=== PATIENT | female | born 1960 | race Caucasian/White ===

== ENCOUNTER 2016-11-05 13:31 | Inpatient (IN) ==
--- NOTE | 2016-11-05 09:53 | Discharge Summary ---
Date of Encounter: 11/08/16 Time of Encounter: 06:37 - Discharge Diagnosis (1) Arthritis of right knee Priority: Primary Status: Chronic (2) Hyperlipidemia Priority: Secondary Status: Acute Qualifiers: Hyperlipidemia type: unspecified Qualified Code(s): E78.5 - Hyperlipidemia , unspecified (3) Diabetes type 2, controlled Priority: Secondary Status: Acute Qualifiers: Diabetes mellitus complication status: without complication Diabetes mellitus termite technician insulin use: unspecified mcfp insulin use status Qualified Code(s): E11.9 - Type 2 diabetes mellitus without complications (4) Status post total right knee replacement Priority: Primary Status: Acute (5) Acute blood loss anemia Priority: Primary Status: Acute - Discharge Medications Home Medications: ALPRAZolam [Xanax 0.25 MG Tablet] 0.25 mg PO BID 11/05/16 [History] Aspirin Enteric Coated [Aspirin EC] 325 mg PO BID #20 tablet. 11/05/16 [Rx] Aspirin [Lo-Dose Aspirin EC] 81 mg PO DAILY 11/05/16 [History] Atorvastatin Calcium [Lipitor] 10 mg PO DAILY 11/05/16 [History] Calcium Carb,Cit/D3/Phytostrol [Citracal D + Heart Health Tab] 1 tab PO DAILY [History] Cholecalciferol (Vitamin D3) [Vitamin D] 1,000 unit PO DAILY 11/05/16 [History] Fluticasone Propionate Nasal [Flonase] 1 spray NS DAILY PRN 11/05/16 [History] Metformin HCl [Fortamet] 500 mg PO BID 11/05/16 [History] Multivitamin/Iron/Folic Acid [Centrum Women Tablet] 1 tab PO DAILY 11/05/16 [ History] Niacin (24 HR) [Niaspan] 500 mg PO DAILY 11/05/16 [History] OxyCODONE Immed Rel [Roxicodone 5 MG] 5 mg PO Q4HR PRN #30 tablet 11/05/16 [Rx] Paroxetine [Paxil] 30 mg PO DAILY 11/05/16 [History] Trazodone HCl 100 mg PO HS 11/05/16 [History] Valsartan/Hydrochlorothiazide [Diovan Hct 320-25 mg Tablet] 1 tab PO DAILY 11/05 [History] Allergies/Adverse Reactions: Allergies No Known Allergies Allergy (Verified 11/05/16 14:38) Primary care physician: Marilia Thao CNP - Patient Status Disposition: Home, Self-Care Condition: Good Functional capacity at discharge: uses cane/walker Overall status at discharge: patient is progressing back to baseline - Discharge Instructions Follow Up With: Marilia Thao CNP [Primary Care Provider] - - Hospital Course Hospital course: Ms. Castillo is a 55 year old female Status post right total knee replacement The patient had an uneventful postoperative course. They received antibiotics and physical therapy and were discharged in stable condition. There will follow -up in the office in 2 weeks. - Time Spent with Patient Total time spent providing and/or coordinating discharge services:
[2016-11-05] MEDS ORDERED: Scopolamine Patch 1.5 MG PATCH.TD72 TD ONE (13:59)
--- NOTE | 2016-11-05 14:03 | Anesthesia Evaluation PreOp ---
Date of Encounter: 11/05/16 Time of Encounter: 14:02 - Past History Planned Operation: Right total knee arthroscopy Cardiac History: HTN, Hyperlipidemia Pulmonary History: Denies Any Significant HX JAIL KEEPER History: Denies Any Significant HX Other Medical History: Diabetes Type II (oral medications only) Anesthesia History: Past Anesthesia, Problems (nausea) Medications and Allergies Aspirin Enteric Coated [Aspirin EC] 325 mg PO BID #20 tablet. 11/05/16 [Rx] OxyCODONE Immed Rel [Roxicodone 5 MG] 5 mg PO Q4HR PRN #30 tablet 11/05/16 [Rx] Allergies No Known Allergies Allergy (Unverified 11/02/16 09:09) - Meds/Allergy Pre-op Review Medications Reviewed: Yes Allergies Reviewed: Yes Beta Blockers on Current Med List: No Anesthesia Results - Labs Laboratory Tests 11/02/16 11/02/16 11/02/16 09:32 09:32 09:32 WBC 10.2 Hgb 14.0 Hct 40.8 Plt Count 334 PT 10.0 INR 0.9 APTT 34.2 Sodium 140 Potassium 3.6 Chloride 104 Carbon Dioxide 28 BUN 13 Creatinine 0.76 Est GFR ( Amer) > 60 Est GFR (Non-Af Amer) > 60 BUN/Creatinine Ratio 17 POC Glucose Est Mean Plasma Glucose Hemoglobin A1c 11/02/16 11/05/16 09:32 13:43 WBC Hgb Hct Plt Count PT INR APTT Sodium Potassium Chloride Carbon Dioxide BUN Creatinine Est GFR ( Amer) Est GFR (Non-Af Amer) BUN/Creatinine Ratio POC Glucose 106 H Est Mean Plasma Glucose 128 Hemoglobin A1c 6.1 H - Imaging EKG: report reviewed, image reviewed (SB) Anesthesia Exam Last Vital Signs Temp 97.4 F L 11/05/16 13:46 Pulse 60 11/05/16 13:46 Resp 18 11/05/16 13:46 BP 161/79 11/05/16 13:46 Pulse Ox 97 11/05/16 13:46 Weight: 83 kg NPO (# of Hours): >> 8 hrs - HEENT Pupil (Motor): Pupils equal, EOMI Mallampati: III Teeth: Edentulous Oral Opening: Greater than 3 - JAIL KEEPER LOC: Oriented JAIL KEEPER Motor: Normal RUE, Normal LUE, Normal RLE, Normal LLE, Normal Face - Cardiac Rhythm: Regular Murmur: None - Pulmonary Breath Sounds: bilateral Clear Respiratory Effort: Symmetrical Anesthesia Assess/Plan ASA Score: 2 Modified Jeremy Scale for Level of Consciousness: Cooperative, oriented, and tranquil Anesthetic Plan: General Monitoring Plan: Standard Monitors Recovery Plan: PACU
--- NOTE | 2016-11-05 14:05 | History & Physical Report ---
Date of Encounter: 11/05/16 Time of Encounter: 14:05 24 Hour HP Update - Instructions Instructions: If the History and Physical is less than 30 days old and was completed prior to A.M. admission and or procedure and has NOT been updated on calendar day of procedure please complete this update prior to performing procedure. - Update Patient reports changes in Medical Condition: No Changes in examination, assessment, or condition: No Changes in Medication: No Preop tests/diagnostics Reviewed: Yes Surgery Remains Indicated: Yes Consent for Planned Operative Procedure(s) Verified: Yes - Pre-Operative Checklist Preoperative Checklist Indicated: No Prophylactic Antibiotic Ordered: Yes Is VTE Prophylaxis Indicated?: Yes
[2016-11-05] MEDS ORDERED: *HR* Propofol 200 MG/20 ML VIAL IVP ONE (14:06)
[2016-11-05] MEDS ORDERED: Dexamethasone 4 MG/ML VIAL ONE (14:06)
[2016-11-05] MEDS ORDERED: Lidocaine -MPF 2% 2 ML VIAL ONE (14:06)
[2016-11-05] MEDS ORDERED: Ondansetron 4 MG/2 ML VIAL ONE (14:06)
[2016-11-05] MEDS ORDERED: *HR* Midazolam HCl 2 MG/2 ML VIAL ONE (14:14)
[2016-11-05] MEDS ORDERED: *HR* FentaNYL (PF) 100 MCG/2 ML VIAL ONE (14:14)
[2016-11-05] MEDS ORDERED: Lidocaine -MPF 1% 2 ML VIAL ID ONE (14:16)
[2016-11-05] MEDS ORDERED: CeFAZolin Pre 2,000 MG/100 ML 2,000 MG/100 ML BAG IVPB ONE (14:16)
[2016-11-05] MEDS ORDERED: ROPIVACAINE HCL/PF 0.5% 30 ML VIAL ONE (14:18)
[2016-11-05] MEDS: Ringers Solution, Lactated 1,000 ML IVC SCH ×2 (14:20→16:32)
--- NOTE | 2016-11-05 15:00 | Anesthesia Procedures ---
Date of Encounter: 11/05/16 Time of Encounter: 14:38 Procedures: Anesthesia - Nerve Block Procedure Date: 11/05/16 Time: 14:38 Allergies/Adv Reactions: nkda Pre-op Diagnosis: R knee pain Surgical Procedure: R TKA Checklist: Correct Patient Identifier, Correct procedure, History checked Correct side: Right Blood Thinner: No Monitor Applied: EKG, BP, Pulse Oximetry Supplemental Oxygen via Nasal Cannula (L/min): 2 Sedation: Versed (mg): 2 Sedation: Fentanyl (mcg): 100 Indication: Post Op Analgesia Pre-op Neuro Deficits: No Block Type: Femoral Sterile Technique: Yes Ultrasound used: Yes Anatomy identified: Yes Visual spread of Local: Yes Neuro Stimulation: Yes Nerve Stimulator Range: 0.2 - 0.4 mA Blood on Needle Aspiration: No Smooth Injection of Local: Yes Pain with Injection of Local: No Prep: Chlorhexadine Needle: 22 x 50 mm Stimuplex Local: Ropivacaine Volume (cc): 30 ml Number of Attempts: 1 Complications: None/effective block
[2016-11-05] MEDS ORDERED: *HR* HYDROmorphone 2 MG/ML SYRINGE ONE (15:08)
[2016-11-05] MEDS ORDERED: Ketorolac 30 MG/ML VIAL ONE (15:08)
[2016-11-05] MEDS ORDERED: EPHEDrine 50 MG/ML VIAL ONE (15:29)
--- NOTE | 2016-11-05 15:51 | Orthopedic Operative Note ---
Date of procedure: 11/05/16 Pre-op diagnosis: Right knee arthritis Post-op diagnosis: same Procedure: Procedure: Right Total knee replacement Estimated blood loss: 200 cc Hardware: Metal and polyethylene replacement. Arthrex Femur: 4 Tibia: 3 PS insert: 12 Patella: 34 Exam Under anesthesia: Full flexion and extension no instability Procedural Notes: Grade 4 arthritic changes medial compartment, grade 3 arthritic changes patellofemoral joint. Operative procedure: The patient was brought to the operating room and placed on the operating room table. After general anesthesia was administered the operative knee was examined. Findings were noted in the exam under anesthesia. The operative extremity was prepped and draped in sterile surgical fashion. The patient received IV antibiotics prior to skin incision. A standard midline incision was made centered over the patella. The incision was made through the skin and subcutaneous tissue. A medial parapatellar tendon approach was performed. Care was taken to preserve tissue along the medial aspect of the patella. And to protect the patella tendon. The deep MCL was released off the medial tibia. The infra patella fat pad was excised. Knee was brought into flexion. Patient noted to have grade 4 arthritic changes medial compartment and grade 3 arthritic changes patellofemoral joint. The entry hole was made for the intramedullary femoral guide. The guide was seated in 6 degrees of valgus. Anterior cut was made followed by the distal cut. The ACL the PCL the medial and the lateral menisci were excised. The tibia was subluxed forward. The entry hole was made for the intramedullary tibial guide. Guide was seated to resect 2 mm off the more abnormal side. The knee was brought into flexion the distal femur was sized to a 4. The femoral guide was seated, the anterior cut was made followed by the posterior condylar cut, followed by the chamfer cuts. The finishing guide was seated the box cut was made and the lug holes were drilled. The tibia was sized to 3, the tibial tray was seated and prepared with the large drill followed by the fin cutter. Trial reduction revealed full extension no varus valgus instability with the appropriate 12 PS Thuy. The patella was everted and cut was made at the level of the insertion of the quadriceps and patella tendon. The patella was sized 34 the guide was seated and the lug holes are drilled. Trial reduction revealed excellent patella tracking. All trial components were removed all bony surfaces were irrigated. The tibia was cemented first followed by the femur. The 12 PS Thuy was seated and the knee was brought into full extension. The patella was cemented and held in place with the patellar holding clamp. After the cement had hardened, the knee sat for 2 minutes with a Betadine saline solution. The knee was then irrigated out with 2 L of pulse irrigation. The extensor mechanism was closed with #2 FiberWire suture and #2 PDS suture. The subcutaneous tissue was then irrigated and closed deep with #1 PDS suture superficially with 0 PDS suture and skin was closed with skin logan. The patient was then placed in a sterile dressing and a postoperative brace extubated and transferred to recovery room in stable condition. Anesthesia: ZACARIAS Surgeon: Sterling Bright Condition: stable Disposition: PACU
[2016-11-05] MEDS: *HR* HYDROmorphone (PF) 1 MG/ML SYRINGE IVP PRN ×3 (16:05→16:36)
[2016-11-05 16:23] LABS: Hematocrit 36.2 % (35.3-44.9)
[2016-11-05 16:24] LABS: Hemoglobin 12.4 g/dL (11.5-15.4)
--- NOTE | 2016-11-05 16:49 | Anesthesia Evaluation Post Op ---
Date of Encounter: 11/05/16 Time of Encounter: 16:47 - Vital Signs Vital Signs: Vital Signs/O2 Sat, Most Current Temp Pulse Resp BP Pulse Ox 97.6 F 67 16 109/67 95 11/05/16 16:34 11/05/16 16:34 11/05/16 16:34 11/05/16 16:34 11/05/16 16:34 - Lungs Lungs: Clear Ascult./Percussion - Airway Airway: Non-obstructed - Cardiovascular Regular Rate - Mental Status Mental Status: Asleep with brisk response to light stimulation - Pain Pain Scale: 10 (Patient states 10/10 when aroused, but she is sleeping comfortably unless stimulated.) - Nausea Vomiting Nausea Vomiting: Not Present - Hydration Hydration: NPO, Has not voided - Discharge PostOp Status: Transfer Patient to floor
[2016-11-05] MEDS ORDERED: MOM Conc 10 ML UD.LIQ PO PRN (17:06)
[2016-11-05] MEDS ORDERED: Naloxone 0.4 MG/ML INJ IVP PRN (17:06)
[2016-11-05] MEDS ORDERED: Ondansetron 4 MG/2 ML VIAL IVP PRN (17:06)
[2016-11-05] MEDS ORDERED: Dextrose Gel 15 GM PO PRN ×2 (17:06)
[2016-11-05] MEDS ORDERED: *HR* Dextrose 50 % in Water (Syg) 50 ML SYRINGE IVP PRN (17:06)
[2016-11-05] MEDS ORDERED: D5% in Water 1,000 ML IVC PRN (17:06)
[2016-11-05] MEDS ORDERED: Ringers Solution, Lactated 1,000 ML IVC SCH (17:06)
[2016-11-05] MEDS ORDERED: Temazepam 15 MG CAPSULE PO PRN (17:06)
[2016-11-05] MEDS ORDERED: *HR* OxyCODONE Immed Rel 5 MG TABLET PO PRN (17:06)
[2016-11-05] MEDS ORDERED: Sennosides 8.6 MG TABLET PO PRN (17:06)
[2016-11-05] MEDS: *HR* Enoxaparin 30 MG/0.3 ML SYRINGE SQ SCH (17:59)
[2016-11-05] MEDS: *HR* OxyCODONE Immed Rel 5 MG TABLET PO PRN ×2 (17:59→22:29)
[2016-11-05] MEDS ORDERED: *HR* Enoxaparin 30 MG/0.3 ML SYRINGE SQ SCH (18:00)
[2016-11-05] MEDS: Insulin LISPRO 300 UNITS/3 ML VIAL SQ SCH ×2 (18:01→20:54)
[2016-11-05] MEDS: ceFAZolin 2,000 MG in D5% in Water 100 ML IVPB SCH (20:53)
[2016-11-06] MEDS: *HR* OxyCODONE Immed Rel 5 MG TABLET PO PRN ×4 (02:38→23:29)
[2016-11-06] MEDS: *HR* HYDROmorphone (PF) 1 MG/ML SYRINGE IVP PRN ×4 (03:27→20:58)
[2016-11-06] MEDS: ceFAZolin 2,000 MG in D5% in Water 100 ML IVPB SCH (05:22)
[2016-11-06] MEDS: *HR* Enoxaparin 30 MG/0.3 ML SYRINGE SQ SCH ×2 (05:23→16:52)
[2016-11-06 06:38] LABS: Hematocrit 32.3 % (35.3-44.9)
[2016-11-06 06:54] LABS: BUN/Creatinine Ratio 22 (6-26); Blood Urea Nitrogen 19 mg/dL (7-20); Calcium 8.9 mg/dL (8.6-10.8); Carbon Dioxide 26 mEq/L (19-29); Chloride 103 mEq/L (98-109); Glucose 140 mg/dL (70-99); Osmolality,Calculated 287 (280-300); Potassium 4.1 mEq/L (3.5-4.5); Sodium 136 mEq/L (136-145); eGFR For African Americans > 60 (> 60); eGFR For Non-African Americans > 60 (> 60)
--- NOTE | 2016-11-06 07:39 | Orthopedics Progress Note ---
Date of Encounter: 11/06/16 Time of Encounter: 07:38 - Assessment and Plan (1) Arthritis of right knee Current Visit: Yes Status: Chronic (2) Hyperlipidemia Current Visit: Yes Status: Acute Qualifiers: Hyperlipidemia type: unspecified Qualified Code(s): E78.5 - Hyperlipidemia , unspecified (3) Diabetes type 2, controlled Current Visit: Yes Status: Acute Qualifiers: Diabetes mellitus complication status: without complication Diabetes mellitus terminal carman insulin use: unspecified terminal carman insulin use status Qualified Code(s): E11.9 - Type 2 diabetes mellitus without complications (4) Status post total right knee replacement Current Visit: Yes Status: Acute Subjective Interval history: Patient was seen this morning doing well without complaints. Afebrile vital signs stable. Operative extremity: Neurovascularly intact Dressing clean dry and intact Calves nontender Assessment and plan: Continue with postoperative care Hematocrit 32 Objective Vital signs: Vital Signs Temp Pulse Resp BP Pulse Ox 11/06/16 06:53 97.8 F 86 18 117/67 96 11/06/16 05:03 97.5 F L 83 18 115/64 98 11/05/16 23:57 97.9 F 87 17 118/82 98 11/05/16 19:30 97.5 F L 65 16 122/64 98 11/05/16 18:20 97.8 F 79 14 115/58 98 11/05/16 17:50 97.9 F 67 14 126/59 97 11/05/16 17:30 97 11/05/16 17:20 97.8 F 67 14 128/67 94 11/05/16 16:54 70 16 127/65 95 11/05/16 16:44 63 14 125/70 99 11/05/16 16:34 97.6 F 67 16 109/67 95 11/05/16 16:24 67 18 129/81 95 11/05/16 16:14 61 14 124/61 97 11/05/16 16:04 65 13 128/69 97 11/05/16 15:54 97.8 F 67 16 135/76 99 11/05/16 14:37 60 18 140/77 97 11/05/16 13:46 97.4 F L 60 18 161/79 97 Intake and Output 11/05/16 11/05/16 11/06/16 15:59 23:59 07:59 Intake Total 100 / 100 1100 / 1100 1600 / 1600 Output Total 600 / 600 700 / 700 Balance 100 / 100 500 / 500 900 / 900 Intake: IV Fluids 100 / 100 1100 / 1100 Lactated Ringers 1,000 ML 1000 / 1000 @ 25 mls/hr IVC .Q24H PENDING SALE TO [facility] Rx#:[id number] Ancef Premix 2,000 MG/100 100 / 100 ML 2,000 mg In 100 ml @ 200 mls/hr IVPB PREOP ONE Rx#:[id number] Ancef 2,000 MG In 100 / 100 Dextrose 5% 100 ML @ 200 mls/hr IVPB Q8H PENDING SALE TO [facility] Rx#: [id number] Oral 0 / 0 1600 / 1600 Output: Urine 400 / 400 700 / 700 Estimated Blood Loss 200 / 200 Other: Weight 82.554 kg Blood Glucose* 114 227 120 - Labs CBC & BMP: 11/06/16 06:08 11/06/16 06:08 Labs: Abnormal lab results Hgb 11.0 g/dL (11.5-15.4) L 11/06/16 06:08 Hct 32.3 % (35.3-44.9) L 11/06/16 06:08 Glucose 140 mg/dL (70-99) H 11/06/16 06:08 POC Glucose 227 (58-89) H 11/05/16 20:19 - VTE Documentation of Mechanical Device: Venous foot pump, device Consult Discharge Plan - Plan Referrals: Marilia Thao CNP [Primary Care Provider] -
[2016-11-06] MEDS: Insulin LISPRO 300 UNITS/3 ML VIAL SQ SCH ×4 (08:28→20:59)
[2016-11-06] MEDS: *HR* Metformin 500 MG TABLET PO SCH (16:52)
[2016-11-06] MEDS: Niacin (24 HR) 500 MG TAB.ER.24H PO SCH (20:59)
[2016-11-06] MEDS: traZODone 50 MG TABLET PO SCH (20:59)
--- NOTE | 2016-11-07 01:03 | Orthopedics Progress Note ---
Date of Encounter: 11/07/16 Time of Encounter: 01:02 - Assessment and Plan (1) Arthritis of right knee Current Visit: Yes Status: Chronic (2) Hyperlipidemia Current Visit: Yes Status: Acute Qualifiers: Hyperlipidemia type: unspecified Qualified Code(s): E78.5 - Hyperlipidemia , unspecified (3) Diabetes type 2, controlled Current Visit: Yes Status: Acute Qualifiers: Diabetes mellitus complication status: without complication Diabetes mellitus terminal worker insulin use: unspecified terminal worker insulin use status Qualified Code(s): E11.9 - Type 2 diabetes mellitus without complications (4) Status post total right knee replacement Current Visit: Yes Status: Acute Subjective Interval history: Patient was seen this morning doing well without complaints. Afebrile vital signs stable. Operative extremity: Neurovascularly intact Dressing clean dry and intact Calves nontender Assessment and plan: Continue with postoperative care Objective Vital signs: Vital Signs Temp Pulse Resp BP Pulse Ox 11/07/16 00:54 98.5 F 80 17 145/85 95 11/06/16 21:34 98.3 F 80 18 156/84 95 11/06/16 10:05 98.1 F 83 16 118/64 97 11/06/16 07:42 96 11/06/16 06:53 97.8 F 86 18 117/67 96 11/06/16 05:03 97.5 F L 83 18 115/64 98 Intake and Output 11/06/16 11/06/16 11/07/16 15:59 23:59 07:59 Intake Total 790 / 790 1800 / 1800 Output Total 1200 / 1200 1250 / 1250 Balance -410 / -410 550 / 550 Intake: IV Fluids 100 / 100 Ancef 2,000 MG In 100 / 100 Dextrose 5% 100 ML @ 200 mls/hr IVPB Q8H [facility] Rx#: [id number] Oral 690 / 690 1800 / 1800 Output: Urine 1200 / 1200 1250 / 1250 Other: Meal Lunch Percent of Meal Consumed 60% Blood Glucose* 139 140 - Labs CBC & BMP: 11/06/16 06:08 11/06/16 06:08 Labs: Abnormal lab results Hgb 11.0 g/dL (11.5-15.4) L 11/06/16 06:08 Hct 32.3 % (35.3-44.9) L 11/06/16 06:08 Glucose 140 mg/dL (70-99) H 11/06/16 06:08 POC Glucose 140 (58-89) H 11/06/16 20:21 - VTE Documentation of Mechanical Device: Venous foot pump, device Consult Discharge Plan - Plan Referrals: Marilia Thao CNP [Primary Care Provider] -
[2016-11-07 01:47] LABS: Hematocrit 29.7 % (35.3-44.9); Hemoglobin 10.4 g/dL (11.5-15.4)
[2016-11-07 01:58] LABS: BUN/Creatinine Ratio 22 (6-26); Blood Urea Nitrogen 18 mg/dL (7-20); Calcium 8.8 mg/dL (8.6-10.8); Carbon Dioxide 27 mEq/L (19-29); Chloride 102 mEq/L (98-109); Glucose 172 mg/dL (70-99); Osmolality,Calculated 286 (280-300); Potassium 3.8 mEq/L (3.5-4.5); Sodium 135 mEq/L (136-145); eGFR For African Americans > 60 (> 60); eGFR For Non-African Americans > 60 (> 60)
[2016-11-07] MEDS: *HR* OxyCODONE Immed Rel 5 MG TABLET PO PRN ×3 (03:53→16:11)
[2016-11-07] MEDS: *HR* Enoxaparin 30 MG/0.3 ML SYRINGE SQ SCH ×2 (05:54→17:19)
[2016-11-07] MEDS: *HR* HYDROmorphone (PF) 1 MG/ML SYRINGE IVP PRN (06:17)
[2016-11-07] MEDS ORDERED: Valsartan 320 MG, hydroCHLOROthiazide 25 MG PO SCH (09:00)
[2016-11-07] MEDS: *HR* Metformin 500 MG TABLET PO SCH ×2 (09:03→17:18)
[2016-11-07] MEDS: hydroCHLOROthiazide 25 MG TABLET PO SCH (09:03)
[2016-11-07] MEDS: Valsartan 160 MG TABLET PO SCH (09:03)
[2016-11-07] MEDS: Aspirin Enteric Coated 81 MG Tablet PO SCH (09:03)
[2016-11-07] MEDS: Cholecalciferol (D-3) 1,000 UNIT TABLET PO SCH (09:03)
[2016-11-07] MEDS: Insulin LISPRO 300 UNITS/3 ML VIAL SQ SCH ×4 (09:04→21:06)
[2016-11-07] MEDS: traZODone 50 MG TABLET PO SCH (21:01)
[2016-11-07] MEDS: Niacin (24 HR) 500 MG TAB.ER.24H PO SCH (21:01)
[2016-11-08] MEDS: *HR* Enoxaparin 30 MG/0.3 ML SYRINGE SQ SCH (05:37)
[2016-11-08] MEDS: *HR* OxyCODONE Immed Rel 5 MG TABLET PO PRN ×2 (05:40→09:51)
--- NOTE | 2016-11-08 06:39 | Orthopedics Progress Note ---
Date of Encounter: 11/08/16 Time of Encounter: 06:38 - Assessment and Plan (1) Arthritis of right knee Current Visit: Yes Status: Chronic (2) Hyperlipidemia Current Visit: Yes Status: Acute Qualifiers: Hyperlipidemia type: unspecified Qualified Code(s): E78.5 - Hyperlipidemia , unspecified (3) Diabetes type 2, controlled Current Visit: Yes Status: Acute Qualifiers: Diabetes mellitus complication status: without complication Diabetes mellitus local intermodal truck driver insulin use: unspecified local intermodal truck driver insulin use status Qualified Code(s): E11.9 - Type 2 diabetes mellitus without complications (4) Status post total right knee replacement Current Visit: Yes Status: Acute (5) Acute blood loss anemia Current Visit: Yes Status: Acute Subjective Interval history: Patient was seen this morning doing well without complaints. Afebrile vital signs stable. Operative extremity: Neurovascularly intact Dressing clean dry and intact Calves nontender Assessment and plan: Continue with postoperative care hematocrit 29.7 discharged today Objective Vital signs: Vital Signs Temp Pulse Resp BP Pulse Ox 11/08/16 03:41 98.8 F 93 17 138/69 95 11/07/16 23:55 98.8 F 82 16 137/71 95 11/07/16 19:14 98.5 F 79 16 156/67 97 11/07/16 15:19 98.1 F 77 16 152/71 98 11/07/16 11:12 98.1 F 70 17 146/70 94 11/07/16 07:13 98.6 F 74 18 145/70 94 Intake and Output 11/07/16 11/07/16 11/08/16 15:59 23:59 07:59 Intake Total 500 / 500 50 / 50 200 / 200 Output Total 0 / 0 300 / 300 Balance 500 / 500 50 / 50 -100 / -100 Intake: Oral 500 / 500 50 / 50 200 / 200 Output: Urine 0 / 0 300 / 300 Other: Meal Breakfast Percent of Meal Consumed 80% # Voids 1 1 Weight 82.191 kg Blood Glucose* 175 143 Patient Weight 11/08/16 23:59 Weight 82.191 kg - Labs CBC & BMP: 11/07/16 01:16 11/07/16 01:16 Labs: Abnormal lab results Hgb 10.4 g/dL (11.5-15.4) L 11/07/16 01:16 Hct 29.7 % (35.3-44.9) L 11/07/16 01:16 Sodium 135 mEq/L (136-145) L 11/07/16 01:16 Glucose 172 mg/dL (70-99) H 11/07/16 01:16 POC Glucose 143 (58-89) H 11/07/16 21:06 - VTE Documentation of Mechanical Device: Venous foot pump, device Consult Discharge Plan - Plan Referrals: Marilia Thao CNP [Primary Care Provider] -
[2016-11-08 07:42] VITALS: BP 128/75
[2016-11-08] MEDS: Aspirin Enteric Coated 81 MG Tablet PO SCH (08:58)
[2016-11-08] MEDS: *HR* Metformin 500 MG TABLET PO SCH (08:58)
[2016-11-08] MEDS: Cholecalciferol (D-3) 1,000 UNIT TABLET PO SCH (08:58)
[2016-11-08] MEDS: hydroCHLOROthiazide 25 MG TABLET PO SCH (08:58)
[2016-11-08] MEDS: Insulin LISPRO 300 UNITS/3 ML VIAL SQ SCH ×2 (08:59→12:43)
[2016-11-08] MEDS: Valsartan 160 MG TABLET PO SCH (08:59)
--- NOTE | 2016-11-08 14:07 | Physician Discharge Referral ---
Home Health/Hosp Referral Info Transfer to: Home Health Attending Provider: Provider in Charge Post Discharge: PCP - Diagnosis (1) Status post total right knee replacement Priority: Primary Status: Acute (2) Arthritis of right knee Priority: Primary Status: Acute (3) Acute blood loss anemia Priority: Secondary Status: Acute (4) Diabetes type 2, controlled Priority: Secondary Status: Chronic (5) Hyperlipidemia Priority: Secondary Status: Chronic - Respiratory Orders None Smoking Cessation: Smoking cessation has been advised. For more information, call the [employer] Tobacco Quit Line at 7-336-MMRP-NOW. - Diet/Nutrition Diet/Nutrition Orders: Regular - Activity Activity Orders: Up ad rhiannon, Ambulate - Services Needed Following services are medically necessary services: Nursing, Home Health Aide, Physical Therapy, Occupational Therapy Other Treatments: Opsite placed. Keep dressing intact until first follow up appointment. If > 50% saturated, notify office, remove dressing and place appropriate dressing back in place. Dressing is water resistant, not water-proof. OK to shower, but do not get dressing wet. Luis Enrique in place, to be removed at POD#14-16. PT/OT. WBAT to affected extremity. Follow Total Knee Precautions x 6 weeks. Stay in brace at night only. Plan to discontinue brace after first post- operative appointment. ICE and elevate extremity frequently throughout the day. Encourage ambulation exercises. - Transfer Medications Home Medications: ALPRAZolam [Xanax 0.25 MG Tablet] 0.25 mg PO BID 11/05/16 [History] Aspirin Enteric Coated [Aspirin EC] 325 mg PO BID #20 tablet. 11/05/16 [Rx] Aspirin [Lo-Dose Aspirin EC] 81 mg PO DAILY 11/05/16 [History] Atorvastatin Calcium [Lipitor] 10 mg PO DAILY 11/05/16 [History] Calcium Carb,Cit/D3/Phytostrol [Citracal D + Heart Health Tab] 1 tab PO DAILY [History] Cholecalciferol (Vitamin D3) [Vitamin D] 1,000 unit PO DAILY 11/05/16 [History] Fluticasone Propionate Nasal [Flonase] 1 spray NS DAILY PRN 11/05/16 [History] Metformin HCl [Fortamet] 500 mg PO BID 11/05/16 [History] Multivitamin/Iron/Folic Acid [Centrum Women Tablet] 1 tab PO DAILY 11/05/16 [ History] Niacin (24 HR) [Niaspan] 500 mg PO DAILY 11/05/16 [History] OxyCODONE Immed Rel [Roxicodone 5 MG] 5 mg PO Q4HR PRN #30 tablet 11/05/16 [Rx] Paroxetine [Paxil] 30 mg PO DAILY 11/05/16 [History] Trazodone HCl 100 mg PO HS 11/05/16 [History] Valsartan/Hydrochlorothiazide [Diovan Hct 320-25 mg Tablet] 1 tab PO DAILY 11/05 [History] Allergies/Adverse Reactions: Allergies No Known Allergies Allergy (Verified 11/05/16 14:38) Certification: Further, I certify that my clinical findings support that this patient is homebound (i.e. absences from home require considerable and taxing effort and are for medical reasons or temple services or infrequently or short duration when for other reasons) because: Homebound Reason: Post-surgery restriction and or conditions limit ability to leave home Attestation: My signature below is to certify that this patient is under my care and that I, or nurse practitioner, or a physician's reproductive healthcare assistant working with me, has a face-to -face encounter with this patient.
== END 2016-11-08 12:56 | disposition home or self-care (01) | DRG 470 ==
LOC: SAMDAY 13:31 → 3NENU 17:03
PROVIDERS: ADMIT Orthopaedic Surgery; ATTEND Orthopaedic Surgery